=== PATIENT | female | born 1955 | race Caucasian/White ===

== ENCOUNTER → 2016-11-30 | Outpatient (CLI) | payer BC ==
--- NOTE | 2016-11-30 11:40 | US ---
EXAMINATION TYPE: US abdomen complete DATE OF EXAM: 11/30/2016 11:23 AM COMPARISON: No previous CLINICAL HISTORY: R10.9 Abdominal pain. Abdomen pain/pressure x 1 month EXAM MEASUREMENTS: Liver Length: 11.8 cm Gallbladder Wall: 0.2 cm CBD: 0.2 cm Spleen: 9.5 cm Right Kidney: 9.5 x 4.1 x 4.6 cm Left Kidney: 10.7 x 5.1 x 3.7 cm TECHNOLOGIST IMPRESSION: Pancreas: wnl Liver: wnl Gallbladder: wnl Evidence for sonographic Mojica's sign: yes CBD: wnl Spleen: visualized portions wnl, limited by rib shadowing Right Kidney: visualized portions wnl, inferior pole partially obscured by overlying bowel gas Left Kidney: wnl Upper IVC: wnl Abd Aorta: Moderate atherosclerotic changes seen throughout. The liver is homogenous. The intrahepatic portion of the IVC and visualized abdominal aorta are with in normal limits. There is no evidence of cholelithiasis. Common bile duct is unremarkable. The vi sualized portions of the pancreas are homogenous. The spleen is unremarkable. Kidneys are symmetric and free of hydronephrosis. No renal lesions are seen. IMPRESSION: No significant finding is seen to account for patient's symptoms.
== END | disposition home or self-care (01) ==
LOC: RADUSWWP 10:49
PROVIDERS: ATTEND Family Medicine
DX: Z00.00 Encounter for general adult medical examination without abnormal findings (principal); R10.9 Unspecified abdominal pain; R73.01 Impaired fasting glucose; E78.00 Pure hypercholesterolemia, unspecified
CPT/HCPCS: 76700

== ENCOUNTER → 2017-08-25 | Outpatient (CLI) | payer BC ==
--- NOTE | 2017-08-28 08:39 | MM ---
Reason for exam: screening (asymptomatic). Last mammogram was performed 1 year and 1 month ago. History: Patient is postmenopausal and is nulliparous. Benign left mammotome panel of the left breast, February 20, 2012. Benign US LT VAD breast biopsy of the left breast, February 20, 2012. Took estrogen for 15 years beginning at age 37. Physical Findings: A clinical breast exam by your physician is recommended on an annual basis and results should be correlated with mammographic findings. MG Screening Mammo w CAD Bilateral CC and MLO view(s) were taken. Prior study comparison: July 28, 2016, bilateral MG screening mammo w CAD. July 17, 2015, bilateral MG diagnostic mammo w CAD ROBERTO. The breast tissue is extremely dense which could obscure a lesion on mammography. Previous mammotome and ultrasound biopsy in the left breast. No significant changes when compared with prior studies. ASSESSMENT: Benign, BI-RAD 2 RECOMMENDATION: Routine screening mammogram of both breasts in 1 year.
== END | disposition home or self-care (01) ==
LOC: RADMAMWWP 12:42
PROVIDERS: ATTEND Family Medicine
DX: Z12.31 Encounter for screening mammogram for malignant neoplasm of breast (principal)

== ENCOUNTER 2018-03-14 08:40 | Day surgery (SDC) | payer BC, MEDICARE ==
[2018-03-12 12:01] VITALS: BMI 17.1
[~2018-03-14 08:40] MED LIST: LACTATED RINGERS 1,000 ML IV SCH; LIDOCAINE 1% 20 ML VIAL (10MG/ML) FOR IV START INTRADERMA PRN
[2018-03-14 09:37] VITALS: TEMP 97.9
[2018-03-14] MEDS ORDERED: PROPOFOL 10 MG/ML 20 ML VIAL IV ONE (09:56)
[2018-03-14] MEDS ORDERED: LIDOCAINE 1% INJ 10MG/ML (20 ML MDV) ONE (09:56)
--- NOTE | 2018-03-14 10:19 | P.PCN ---
Date of Procedure: 03/14/18 Procedure(s) Performed: BRIEF HISTORY: Patient is a 63-year-old pleasant white female, scheduled for an elective colonoscopy as a part of abdominal bloating, abdominal pain for the last several months duration. PROCEDURE PERFORMED: Colonoscopy. PREOPERATIVE DIAGNOSIS: Abdominal pain/abdominal bloating. IV sedation per Anesthesia. PROCEDURE: After informed consent was obtained, the patient, was brought into the endoscopy unit. IV sedation was administered by Anesthesia under continuous monitoring. Digital rectal examination was normal. Initially the Olympus CF- 160 flexible video colonoscope was then inserted in the rectum, gradually advanced into the cecum without any difficulty. Careful examination was performed as the scope was gradually being withdrawn. Ileocecal valve and the appendiceal orifice were visualized and appeared normal. Prep was excellent. Mucosa of the cecum, ascending colon, transverse colon, descending colon, sigmoid colon, and rectum appeared normal. Scattered sigmoid diverticulosis seen. Retroflexion was performed in the rectum and no lesions were seen. The patient tolerated the procedure well. IMPRESSION: ' Normal-appearing colon from rectum to cecum with no evidence of colon rectal neoplasia. Scattered sigmoid diverticulosis. RECOMMENDATIONS: Findings of this examination were discussed with the patient as well as a family. She was advised to have a repeat screening colonoscopy in 10 years.
[2018-03-14 10:32] VITALS: PULSE 73; RESP 16
[2018-03-14 10:54] VITALS: BP 130/65
== END 2018-03-14 11:05 | disposition home or self-care (01) ==
LOC: ORWHC2ENDO 08:40
PROVIDERS: ATTEND Internal Medicine Gastroenterology
DX: K57.30 Diverticulosis of large intestine without perforation or abscess without bleeding (principal); E78.5 Hyperlipidemia, unspecified; J45.909 Unspecified asthma, uncomplicated; Z72.0 Tobacco use; F39 Unspecified mood [affective] disorder; K21.9 Gastro-esophageal reflux disease without esophagitis; Z79.51 Long term (current) use of inhaled steroids; Z79.899 Other long term (current) drug therapy; Z88.5 Allergy status to narcotic agent
CPT/HCPCS: 45378; J2001; J2704

== ENCOUNTER → 2018-09-24 | Outpatient (CLI) | payer MEDICARE ==
--- NOTE | 2018-09-24 15:30 | BD ---
EXAMINATION TYPE: Axial Bone Density DATE OF EXAM: 09/24/2018 COMPARISON: 07/07/2003 CLINICAL HISTORY: 63-year-old female screening for osteoporosis Height: 64 IN Weight: 104 LBS FRAX RISK QUESTIONS: Secondary Osteoporosis: 3. Menopause before 45: YES AGE 37 RISK FACTORS HISTORY OF: Active: YES Postmenopausal woman: AGE 37 MEDICATIONS: Additional Medications: VIT B12, OMEPRAZOLE, PRAVASTATIN, LEXAPRO, BENTYL, PRESERVISION, INHALER, COLMENARES PER B COMPLEX EXAM MEASUREMENTS: Bone mineral densitometry was performed using the [employer] System. Bone mineral density as measured about the Lumbar spine is: ----- L1-L4(G/cm2): 0.917 T Score Values are as follows: ----- L2: -2.0 ----- L3: -2.0 ----- L4: -2.5 ----- L1-L4: -2.2 Bone mineral density has: Decreased -17.0% since study of: 07/07/2003 Bone mineral density about the R hip (g/cm2): 0.735 Bone mineral density about the L hip (g/cm2): 0.726 T Score values are as follows: -----R Neck: -2.2 -----L Neck: -2.2 -----R Total: -2.3 -----L Total: -2.3 Bone mineral density has: Decreased -26.0% since study of: 07/07/2003 IMPRESSION: Osteopenia (T Score between -2.5 and -1). However, note that measurements border on osteoporosis in t he lumbar spine. There is slightly increased risk of fracture and the patient may be considered for treatment. Re-Screen 2-5 years. NOTE: T-SCORE=SD OF THE YOUNG ADULT MEAN.
== END | disposition home or self-care (01) ==
LOC: RADBDWWP 09:51
PROVIDERS: ATTEND Family Medicine
DX: M85.80 Other specified disorders of bone density and structure, unspecified site (principal); M81.0 Age-related osteoporosis without current pathological fracture
CPT/HCPCS: 77080

== ENCOUNTER → 2019-10-16 | Outpatient (CLI) | payer MEDICARE ==
--- NOTE | 2019-10-17 11:12 | MM ---
Reason for exam: screening (asymptomatic). Last mammogram was performed 1 year and 1 month ago. History: Patient is postmenopausal and is nulliparous. Benign left mammotome panel of the left breast, February 20, 2012. Benign US LT VAD breast biopsy of the left breast, February 20, 2012. Took estrogen for 15 years beginning at age 37. Physical Findings: A clinical breast exam by your physician is recommended on an annual basis and results should be correlated with mammographic findings. MG 3D Screening Mammo W/Cad Bilateral CC and MLO view(s) were taken. Prior study comparison: September 06, 2018, bilateral MG 3d screening mammo w/cad. August 25, 2017, bilateral MG screening mammo w CAD. The breast tissue is extremely dense which could obscure a lesion on mammography. There are biopsy proven benign left calcifications with two left breast markers. No suspicious abnormality. ASSESSMENT: Benign, BI-RAD 2 RECOMMENDATION: Routine screening mammogram of both breasts in 1 year. Manage on a clinical basis with regard to intermittent left pain. If persistent on focal then diagnostic exam would be recommended.
== END | disposition home or self-care (01) ==
LOC: RADMAMWWP 16:20
PROVIDERS: ATTEND Family Medicine
DX: Z12.31 Encounter for screening mammogram for malignant neoplasm of breast (principal)
CPT/HCPCS: 77063; 77067

== ENCOUNTER → 2020-10-21 | Outpatient (CLI) | payer MEDICARE ==
--- NOTE | 2020-10-22 14:13 | MM ---
Reason for exam: screening (asymptomatic). Last mammogram was performed 1 year ago. History: Patient is postmenopausal and is nulliparous. Benign left mammotome panel of the left breast, February 20, 2012. Benign US LT VAD breast biopsy of the left breast, February 20, 2012. Took estrogen for 15 years beginning at age 37. Physical Findings: A clinical breast exam by your physician is recommended on an annual basis and results should be correlated with mammographic findings. MG 3D Screening Mammo W/Cad Bilateral CC and MLO view(s) were taken. Prior study comparison: October 16, 2019, bilateral MG 3d screening mammo w/cad. September 06, 2018, bilateral MG 3d screening mammo w/cad. The breast tissue is extremely dense which could obscure a lesion on mammography. Previous mammotome biopsy in the left breast x 2. Stable left sided dystrophic calcifications. No significant changes when compared with prior studies. ASSESSMENT: Benign, BI-RAD 2 RECOMMENDATION: Routine screening mammogram of both breasts in 1 year.
== END | disposition home or self-care (01) ==
LOC: RADMAMWWP 11:49
PROVIDERS: ATTEND Family Medicine
DX: Z12.31 Encounter for screening mammogram for malignant neoplasm of breast (principal)
CPT/HCPCS: 77063; 77067

== ENCOUNTER → 2021-12-16 | Outpatient (CLI) | payer MEDICARE, BC ==
--- NOTE | 2021-12-17 11:49 | MM ---
Reason for exam: screening (asymptomatic). Last mammogram was performed 1 year and 2 months ago. History: Patient is postmenopausal and is nulliparous. Benign left mammotome panel of the left breast, February 20, 2012. Benign US LT VAD breast biopsy of the left breast, February 20, 2012. Took estrogen for 15 years beginning at age 37. Physical Findings: A clinical breast exam by your physician is recommended on an annual basis and results should be correlated with mammographic findings. MG 3D Screening Mammo W/Cad Bilateral CC and MLO view(s) were taken. Prior study comparison: October 21, 2020, bilateral MG 3d screening mammo w/cad. October 16, 2019, bilateral MG 3d screening mammo w/cad. The breast tissue is heterogeneously dense. This may lower the sensitivity of mammography. Stable punctate calcifications in the left breast. There is no discrete abnormality. No significant changes when compared with prior studies. ASSESSMENT: Benign, BI-RAD 2 RECOMMENDATION: Routine screening mammogram of both breasts in 1 year.
== END | disposition home or self-care (01) ==
LOC: RADMAMWWP 12:38
PROVIDERS: ATTEND Family Medicine
DX: Z12.31 Encounter for screening mammogram for malignant neoplasm of breast (principal)
CPT/HCPCS: 77063; 77067

== ENCOUNTER → 2022-12-27 | Outpatient (CLI) | payer MEDICARE ==
--- NOTE | 2022-12-28 10:20 | MM ---
Reason for Exam: Screening (asymptomatic). Last screening mammogram was performed 12 month(s) ago. Patient History: Menarche at age 10. Patient has no children. Hysterectomy at age 37. Postmenopausal. Estrogen, starting at age 37 for 15 years. 02/20/2012, Benign Core Biopsy on the left side. 02/20/2012, Benign Core Biopsy on the left side. Risk Values: Tabby 5 year model risk: 2.9%. NCI Lifetime model risk: 8.7%. Prior Study Comparison: 10/16/2019 Bilateral Screening Mammogram, [facility]. 10/21/2020 Bilateral Screening Mammogram, [facility]. 12/16/2021 Bilateral Screening Mammogram, [facility]. Tissue Density: The breast tissue is heterogeneously dense. This may lower the sensitivity of mammography. Findings: Analyzed By CAD. Mammotome biopsy clip posterior upper outer aspect left breast is redemonstrated. There is additional mammotome biopsy clip anterior upper outer aspect at the site of group of dystrophic calcifications redemonstrated. There is no suspicious new group of microcalcifications or new suspicious mass in either breast. Overall Assessment: Benign, BI-RAD 2 Management: Screening Mammogram of both breasts in 1 year. A clinical breast exam by your physician is recommended on an annual basis and results should be correlated with mammographic findings. Electronically signed and approved by: Mor Thomas M.D.
== END | disposition home or self-care (01) ==
LOC: RADMAMWWP 14:30
PROVIDERS: ATTEND Family Medicine
DX: Z12.31 Encounter for screening mammogram for malignant neoplasm of breast (principal); Z78.0 Asymptomatic menopausal state; Z98.890 Other specified postprocedural states
CPT/HCPCS: 77063; 77067

== ENCOUNTER → 2023-11-30 | Outpatient (CLI) | payer MEDICARE ==
--- NOTE | 2023-11-30 21:04 | BD ---
EXAMINATION TYPE: Axial Bone Density DATE OF EXAM: 11/30/2023 CLINICAL HISTORY: 68 years old Female. ICD-10 CODE: Z78.0 SCREENING Height: 63" Weight: 97lbs FRAX RISK QUESTIONS: Alcohol (3 or more units per day): No Family History (Parent hip fracture): No Glucocorticoids (More than 3mos): No (Ex: prednisone, prednisolone, methylprednisolone, dexamethasone, and hydrocortisone). History of Fracture in Adulthood: No Secondary Osteoporosis: 1. Type 1 Diabetes: No 2. Hyperthyroidism: No 3. Menopause before 45: No 4. Malnutrition: No 5. Chronic liver disease: No Rheumatoid Arthritis: No Current Tobacco Use: Yes RISK FACTORS HISTORY OF: Hip Fracture (Right/Left): No Spine Fracture: No History of Wrist Fracture: No Surgery to Spine/Hip(right/left)/Wrist (right/left): No MEDICATIONS: Thyroid Medications: No Osteoporosis Medications: No EXAM MEASUREMENTS: Bone mineral densitometry was performed using the [employer] System. Bone mineral density as measured about the Lumbar spine is: ----- L1-L4(G/cm2): 0.904 T Score Values are as follows: ----- L1: -2.7 ----- L2: -2.2 ----- L3: -2.1 ----- L4: -2.4 ----- L1-L4: -2.3 Z Score Values are as follows: ----- L1: -0.3 ----- L2: 0.2 ----- L3: 0.3 ----- L4: -0.1 ----- L1-L4: 0.1 Bone mineral density has: decreased -1.4% since study of: 09/24/2018 Bone mineral density about the R hip (g/cm2): 0.650 Bone mineral density about the L hip (g/cm2): 0.672 T Score values are as follows: -----R Neck: -2.4 -----L Neck: -2.2 -----R Total: -2.8 -----L Total: -2.7 Z Score values are as follows: -----R Neck: -0.3 -----L Neck: 0.0 -----R Total: -0.8 -----L Total: -0.7 Bone mineral density has: decreased -7.7% since study of: 09/24/2018 FRAX%s: The graph provided illustrates a 12.9% chance for a major osteoporotic fx and a 5.4% chance f or the hips probability for fx in 10 years time. IMPRESSION: Osteoporosis (T Score less than -2.5). There is increased fracture risk and therapy is usually indicated based on age. Re-Screen 1-2 years. NOTE: T-SCORE=SD OF THE YOUNG ADULT MEAN.
--- NOTE | 2023-12-01 09:51 | MM ---
Reason for Exam: Screening (asymptomatic). Last screening mammogram was performed 11 month(s) ago. Patient History: Menarche at age 10. Patient has no children. Hysterectomy at age 37. Postmenopausal. Estrogen, starting at age 37 for 15 years. 02/20/2012, Benign Core Biopsy on the left side. 02/20/2012, Benign Core Biopsy on the left side. Risk Values: Tabby 5 year model risk: 2.9%. NCI Lifetime model risk: 8.3%. Prior Study Comparison: 10/21/2020 Bilateral Screening Mammogram, [facility]. 12/16/2021 Bilateral Screening Mammogram, [facility]. 12/27/2022 Bilateral MG 3D screening mammo w/cad, [facility]. Tissue Density: The breast tissue is heterogeneously dense. This may lower the sensitivity of mammography. Findings: Analyzed By CAD. There is no suspicious group of microcalcifications or new suspicious mass in either breast. Previous biopsy clip within the left breast. Benign-appearing calcifications stable. Overall Assessment: Benign, BI-RAD 2 Management: Screening Mammogram of both breasts in 1 year. . Patient should continue monthly self-breast exams. A clinical breast exam by your physician is recommended on an annual basis. This exam should not preclude additional follow-up of suspicious palpable abnormalities. Note on Tabby scores and lifetime risk: 1. A Tabby score greater than 3% is considered moderate risk. If this is the case, consider specialist referral to assess eligibility for a risk reducing agent. 2. If overall lifetime risk for the development of breast cancer is 20% or higher, the patient may qualify for future screening with alternating mammogram and breast MRI. Electronically signed and approved by: Den Miles M.D. Radiologis
== END | disposition home or self-care (01) ==
LOC: RADMAMWWP 10:44
PROVIDERS: ATTEND Family Medicine
DX: Z12.31 Encounter for screening mammogram for malignant neoplasm of breast (principal); M81.0 Age-related osteoporosis without current pathological fracture; M85.89 Other specified disorders of bone density and structure, multiple sites; Z78.0 Asymptomatic menopausal state
CPT/HCPCS: 77063; 77067; 77080

== ENCOUNTER → 2025-01-16 | Outpatient (CLI) | payer MEDICARE ==
--- NOTE | 2025-01-16 17:38 | MM ---
Reason for Exam: Screening (asymptomatic). Last mammogram was performed 1 year(s) and 2 month(s) ago. Patient History: Menarche at age 10. Patient has no children. Hysterectomy at age 37. Postmenopausal. Estrogen, starting at age 37 for 15 years. 02/20/2012, Benign Core Biopsy on the left side. 02/20/2012, Benign Core Biopsy on the left side. Risk Values: Tabby 5 year model risk: 2.9%. NCI Lifetime model risk: 7.5%. Prior Study Comparison: 12/16/2021 Bilateral Screening Mammogram, [facility]. 12/27/2022 Bilateral MG 3D screening mammo w/cad, [facility]. 11/30/2023 Bilateral MG 3D screening mammo w/cad, [facility]. Tissue Density: The breasts are extremely dense, which lowers the sensitivity of mammography. Findings: Analyzed By CAD. Unchanged asymmetric densities on the left. 2 microclips related to prior biopsies. Coarse grouped calcifications on the left are unchanged. There is no suspicious group of microcalcifications or new suspicious mass in either breast. Overall Assessment: Benign, BI-RAD 2 Management: Screening Mammogram of both breasts in 1 year. Given the patient's extremely dense breast tissue, consideration can be given to supplementary screening with breast ultrasound. Patient should continue monthly self-breast exams. A clinical breast exam by your physician is recommended on an annual basis. This exam should not preclude additional follow-up of suspicious palpable abnormalities. Note on Tabby scores and lifetime risk: 1. A Tabby score greater than 3% is considered moderate risk. If this is the case, consider specialist referral to assess eligibility for a risk reducing agent. 2. If overall lifetime risk for the development of breast cancer is 20% or higher, the patient may qualify for future screening with alternating mammogram and breast MRI. [facility], , 01/16/2025 5:35 PM. Electronically signed and approved by: Estrellita Read M.D. Radiologist
== END | disposition home or self-care (01) ==
LOC: RADMAMWWP 14:39
PROVIDERS: ATTEND Family Medicine
DX: Z12.31 Encounter for screening mammogram for malignant neoplasm of breast (principal); R92.343 Mammographic extreme density, bilateral breasts; Z78.0 Asymptomatic menopausal state
CPT/HCPCS: 77063; 77067